=== PATIENT | male | born 1995 | race African-American/Black ===

== ENCOUNTER 2018-12-16 06:54 | Emergency (ER) | payer BC ==
[~2018-12-16] VITALS: Ht 175.3 cm; Wt 68.0 kg
--- NOTE | 2018-12-16 07:15 | NUR ---
[id number]. PATIENT CAME IN WITH ABD PAIN AND WITH PATIENT CLAIMING "2 EPISODES OF DIAHRRHEA W/ 2 CUPS OF DARK RED BLOOD". CURRENT ABDM PAIN W/ NAUSEA. PATIENT AT BS SITTING HIGH-ESCOBAR'S W/ RAILS UP FOR PATIENT SAFETY. PAITENT GIVEN BLANKET FOR COMFORT. WILL CONTINUE TO MONITOR PATIENT AND AWAIT ORDERS FROM .
[2018-12-16] MEDS ORDERED: MORPHINE SULFATE INJ 4 MG/ML DISP.SYRIN ONE (07:19)
[2018-12-16] MEDS ORDERED: FAMOTIDINE/PF INJ 20 MG/2 ML VIAL IV ONE ×2 (07:19→07:30)
[2018-12-16] MEDS ORDERED: ONDANSETRON HCL/PF 4 MG/2 ML VIAL ONE (07:19)
[2018-12-16 07:29] LABS: BASOPHILS # (AUTO) 0.1 /CMM (0.0-0.2); BASOPHILS % (AUTO) 0.9 % (0.0-2.0); EOSINOPHILS % (AUTO) 0.8 % (0.0-6.0); HEMATOCRIT 48 % (39-51); HEMOGLOBIN 16.6 g/dL (13.5-17.5); LYMPHOCYTES # (AUTO) 1.3 /CMM (0.8-4.8); LYMPHOCYTES % (AUTO) 18.3 % (20.0-44.0); MEAN CORPUSCULAR HGB CONC 35 g/dl (31.0-36.0); MEAN CORPUSCULAR VOLUME 93 fL (80-96); MONOCYTES # (AUTO) 0.5 /CMM (0.1-1.30); MONOCYTES % (AUTO) 7.2 % (2.0-12.0); NEUTROPHILS % (AUTO) 72.8 % (43.0-81.0); PLATELET COUNT (AUTO) 233 /CMM (150-450); RED BLOOD CELL COUNT(AUTO) 5.16 MIL/uL (4.5-6.0); WHITE BLOOD COUNT (AUTO) 6.9 K/uL (4.3-11.0)
[2018-12-16] MEDS ORDERED: IV NS 0.9% 500 ML BAG IV ONE (07:30)
[2018-12-16] MEDS ORDERED: ONDANSETRON HCL/PF 4 MG/2 ML VIAL IVP ONE (07:30)
[2018-12-16] MEDS ORDERED: MORPHINE SULFATE INJ 2 MG/ML DISP.SYRIN IV ONE ×2 (07:30→08:30)
[2018-12-16 07:36] LABS: CALCIUM, SERUM 9.4 mg/dL (8.5-10.1); POTASSIUM 4.1 mmol/L (3.5-5.1)
[2018-12-16 07:50] LABS: ALBUMIN 4.1 g/dL (3.4-5.0); BILIRUBIN,DIRECT 0.1 mg/dL (0.0-0.2); BILIRUBIN,TOTAL 0.4 mg/dL (0.2-1.0); TOTAL PROTEIN, SERUM 7.6 g/dL (6.4-8.2)
[2018-12-16] MEDS ORDERED: MORPHINE SULFATE INJ 2 MG/ML DISP.SYRIN ONE (08:13)
[2018-12-16] MEDS ORDERED: AMOX/CLAVULANATE 875 MG TABLET ONE (08:14)
[2018-12-16] MEDS ORDERED: AMOX/CLAVULANATE 875 MG TABLET PO ONE (08:30)
[2018-12-16] MEDS ORDERED: HYDROMORPHONE 1 MG/1 ML DISP.SYRIN ONE (09:28)
[2018-12-16] MEDS ORDERED: HYDROMORPHONE INJ 0.5 MG/0.5 ML SYRINGE IV ONE (09:30)
[2018-12-16 10:23] VITALS: BP 132/66
--- NOTE | 2018-12-16 10:23 | NUR ---
Patient discharged to home in stable condition. Written and verbal after care instructions given. Patient verbalizes understanding of instruction. IV removed. Catheter intact and site benign. Pressure and 4x4 applied to site. No bleeding noted.
== END 2018-12-16 10:28 | disposition home or self-care (01) ==
LOC: ER 07:00
DX: K52.9 Noninfective gastroenteritis and colitis, unspecified (principal)
CPT/HCPCS: 36415; 74176; 80048; 80076; 83690; 85025; 85730; 86850; 96374; 96375; 96376; 99284; J1170; J2270 ×2; J2405; J3490; J7040

== ENCOUNTER 2019-11-26 22:36 | Emergency (ER) | payer BC ==
[~2019-11-26] VITALS: Ht 170.2 cm; Wt 68.0 kg
[2019-11-26 22:43] VITALS: BP 135/73
--- NOTE | 2019-11-26 22:54 | NUR ---
Patient does not wish to proceed with medical care recommended by Kelsy Skinner. Patient given information related to possible complications, up to and including , which could occur as a result of leaving the hospital at this time. Patient verbalizes understanding of risks involved due to leaving against medical advice. Patient has signed AMA form.
== END 2019-11-26 22:57 | disposition left against medical advice (07) ==
LOC: ER 22:38
DX: R05 Cough (principal); R50.9 Fever, unspecified; R06.02 Shortness of breath